=== PATIENT | female | born 1960 | race American Indian/Alaskan Native ===

== ENCOUNTER 2016-09-29 08:30 | Day surgery (SDC) | payer MEDICARE ==
[2016-09-21 10:24] VITALS: BMI 56.3
[2016-09-29 09:06] VITALS: RESP 16; TEMP 98
[2016-09-29] MEDS ORDERED: Propofol 10 mg/ml Inj (20 ML) ONE (10:04)
[2016-09-29] MEDS ORDERED: Lactated Ringer's 1,000 ML IV SCH (10:20)
[2016-09-29 10:42] VITALS: O2SAT 99
[2016-09-29 11:57] VITALS: BP 108/67; PULSE 80
== END 2016-09-29 11:51 | disposition home or self-care (01) ==
LOC: ENDO 08:30
PROVIDERS: ATTEND Specialist
DX: K22.2 Esophageal obstruction (principal); K21.9 Gastro-esophageal reflux disease without esophagitis; K29.50 Unspecified chronic gastritis without bleeding; K44.9 Diaphragmatic hernia without obstruction or gangrene; K31.9 Disease of stomach and duodenum, unspecified; Z01.818 Encounter for other preprocedural examination; E66.01 Morbid (severe) obesity due to excess calories; Z68.43 Body mass index [BMI] 50.0-59.9, adult; J44.9 Chronic obstructive pulmonary disease, unspecified; Z86.73 Personal history of transient ischemic attack (TIA), and cerebral infarction without residual deficits

== ENCOUNTER 2018-06-05 13:50 | Emergency (ER) | payer MEDICARE ==
[2018-06-05 13:51] VITALS: BMI 56.3
[2018-06-05 14:37] VITALS: RESP 20; TEMP 99.8
--- NOTE | 2018-06-05 14:57 | ED PDOC ---
Arrival/HPI - General Historian: Patient - History of Present Illness Narrative History of Present Illness (Text): Patient is a 58 yr old F with PMH who presents with SOB, nonproductive cough, congestion, f/c, and headache since yesterday. patient indicates that she had taken a nebulizer treatment at home this morning to alleviate SOB but did not feel much better. She otherwise denies Dizziness, CP, body aches, abdominal pain, n/v, stool changes and extremity pain/weakness. 06/05/18 14:42 Time/Duration: Prior to Arrival Symptom Course: Unchanged Severity Level: 6 <Karly Arce - Last Filed: 06/05/18 18:32> <Deejay Hernandez - Last Filed: 06/05/18 21:24> - General Chief Complaint: Shortness Of Breath Past Medical History - Provider Review Nursing Documentation Reviewed: Yes - Infectious Disease Hx of Infectious Diseases: None - Tetanus Immunization Tetanus Immunization: Unknown - Reproductive Menopause: Yes - Cardiac Hx Pacemaker: No - Pulmonary Hx Chronic Obstructive Pulmonary Disease (COPD): Yes - Neurological Hx Paralysis: No (WEAKNESS R ARM AND R LEG FROM PAST CVA) - Hematological/Oncological Hx Blood Transfusions: No - Musculoskeletal/Rheumatological Hx Musculoskeletal Disorders: Yes - Psychiatric Hx Emotional Abuse: No Hx Physical Abuse: No Hx Substance Use: No - Surgical History Hx Appendectomy: Yes Hx Hysterectomy: Yes Other/Comment: b/l oopherectomy - Anesthesia Hx Anesthesia Reactions: No Hx Malignant Hyperthermia: No - Suicidal Assessment Feels Threatened In Home Enviroment: No <Karly Arce - Last Filed: 06/05/18 18:32> Family/Social History - Physician Review Nursing Documentation Reviewed: Yes Family/Social History: Unknown Family HX Smoking Status: Current Some Days Smoker Hx Alcohol Use: No Hx Substance Use: No Hx Substance Use Treatment: No <Karly Arce - Last Filed: 06/05/18 18:32> Allergies/Home Meds <Karly Arce - Last Filed: 06/05/18 18:32> <Deejay Hernandez - Last Filed: 06/05/18 21:24> Allergies/Adverse Reactions: Allergies latex Allergy (Verified 04/06/16 17:48) RASH Sulfa (Sulfonamide Antibiotics) Allergy (Verified 04/06/16 17:48) RASH tomato Allergy (Verified 04/06/16 17:48) RASH Home Medications: Home Meds Medication Instructions Recorded Confirmed RX: Triamterene/Hydrochlorothiazid 1 tab PO DAILY 10/31/11 09/29/16 [Maxzide 75 mg-50 mg Tablet] RX: Omeprazole [Prilosec] 40 mg PO DAILY 01/31/14 09/29/16 Propranolol HCl [Inderal LA] 60 mg PO QPM 09/06/16 09/29/16 Acetaminophen/Butalbital/Caf 1 tab PO DAILY PRN 09/21/16 09/21/16 [Fioricet] Albuterol HFA [Ventolin HFA 90 11 puff IH PRN PRN 09/21/16 09/29/16 mcg/actuation (8 g)] Carisoprodol [Soma] 350 mg PO TID 09/21/16 09/29/16 Hydrocodone/Acetaminophen [Vicodin 1 tab PO Q6H PRN 09/21/16 09/29/16 5 mg-300 mg] Naproxen [Naprosyn] 500 mg PO BID 09/21/16 09/29/16 Pericolace 1 tab PO DAILY PRN 09/21/16 09/29/16 RX: Loratadine [Claritin] 10 mg PO DAILY 09/21/16 09/29/16 RX: Multivitamin [Multivitamins] 1 tab PO DAILY 09/21/16 09/29/16 Tiotropium Br/Olodaterol HCl 4 gm IH DAILY PRN 09/21/16 09/29/16 [Stiolto Respimat Inhal [place]] RX: Prednisone 50 mg PO DAILY 09/29/16 09/29/16 Review of Systems - Physician Review All systems were reviewed & negative as marked: Yes - Review of Systems ENT: Sinus Congestion Respiratory: SOB, Cough, Sputum <Karly Arce - Last Filed: 06/05/18 18:32> Physical Exam Vital Signs Temp Pulse Resp BP Pulse Ox 06/05/18 14:32 99.8 F H 88 20 168/101 H 92 L Temperature: Afebrile Blood Pressure: Hypertensive Pulse: Regular Respiratory Rate: Apneic Appearance: Positive for: Well-Appearing, Non-Toxic Pain Distress: Mild Mental Status: Positive for: Alert and Oriented X 3 - Systems Exam Head: Present: Atraumatic, Normocephalic Extroacular Muscles: Present: EOMI Mouth: Present: Moist Mucous Membranes Neck: Present: Normal Range of Motion Respiratory/Chest: Present: Good Air Exchange, Wheezes. No: Respiratory Distress, Accessory Muscle Use Cardiovascular: Present: Regular Rate and Rhythm, Normal S1, S2. No: Murmurs Abdomen: Present: Normal Bowel Sounds. No: Tenderness, Distention, Peritoneal Signs, Guarding <Karly Arce - Last Filed: 06/05/18 18:32> Vital Signs Temp Pulse Resp BP Pulse Ox 06/05/18 15:23 99.8 F H 92 H 20 162/97 H 93 L 06/05/18 14:37 20 93 L 06/05/18 14:32 99.8 F H 88 20 168/101 H 92 L <Deejay Hernandez - Last Filed: 06/05/18 21:24> Medical Decision Making ED Course and Treatment: Impression: 58 yr old female with PMH COPD, Migraines, and morbid obesity presenting wiht cough congestion and SOB Plan: CBC CMP CXR rapid flu solumedrol duonebs reassess and dispo 06/05/18 14:44 <Karly Arce - Last Filed: 06/05/18 18:32> ED Course and Treatment: Progress Notes 06/05/18 16:35 Patient seen and evaluated with improvement in pulmonary exam. She is informed of her positive influenza A diagnosis and is started on Tamiflu in the ED. Shared decision making with patient desiring to go home with encouragement to continue conservative management with follow up with her PCP. Scripts provided and opportunity for questions given and answered. She is stable for discharged. - Lab Interpretations Lab Results: 06/05/18 14:58 Lab Results 06/05/18 15:35: Influenza Typ A,B (EIA) Pos for influenza a H 06/05/18 14:58: WBC 6.4 D, RBC 3.87, Hgb 11.9 L, Hct 37.2, MCV 96.1 D, MCH 30.7, MCHC 32.0, RDW 14.5, Plt Count 215, MPV 9.8, Neut % (Auto) 66.5, Lymph % (Auto) 17.2 L, [place] % (Auto) 14.7 H, Eos % (Auto) 1.1 L, Baso % (Auto) 0.5, Lymph # (Auto) 1.1 L, [place] # (Auto) 0.9 H, Eos # (Auto) 0.1, Baso # (Auto) 0.03, Absolute Neuts (auto) 4.26 I have reviewed the lab results: Yes - RAD Interpretation Radiology Orders: 06/05/18 15:02 CHEST PORTABLE [RAD] Stat - Medication Orders Current Medication Orders: Discontinued Medications Acetaminophen (Tylenol 325mg Tab) 650 mg PO STAT STA Stop: 06/05/18 15:39 Last Admin: 06/05/18 16:12 Dose: 650 mg MAR Pain/Vitals Document 06/05/18 16:12 [facility] (Rec: 06/05/18 16:12 [id number] Pain Reassessment Is This A Pain ReAssessment? No Sleep Is patient sleeping during reassessment? No Presence of Pain Presence of Pain Yes Pain Scale Used Protocol: PSCALES Pain Scale Used Numeric Albuterol Sulfate (Albuterol 0.083% Inhal Sherri (2.5 Mg/3 Ml) Ud) 2.5 mg INH STAT STA Stop: 06/05/18 14:59 Last Admin: 06/05/18 15:26 Dose: 2.5 mg Methylprednisolone (Solu-Medrol) 125 mg IVP STAT STA Stop: 06/05/18 15:03 Last Admin: 06/05/18 15:25 Dose: 125 mg IVP Administration Document 06/05/18 15:25 [facility] (Rec: 06/05/18 15:26 [id number] Charges for Administration # of IVP Administrations 1 Oseltamivir Phosphate (Tamiflu Cap) 75 mg PO ONCE ONE; Protocol Stop: 06/05/18 16:05 Last Admin: 06/05/18 16:13 Dose: 75 mg <Deejay Hernandez - Last Filed: 06/05/18 21:24> Disposition/Present on Arrival - Present on Arrival Any Indicators Present on Arrival: No History of DVT/PE: No History of Uncontrolled Diabetes: No Urinary Catheter: No History of Decub. Ulcer: No History Surgical Site Infection Following: None - Disposition Have Diagnosis and Disposition been Completed?: Yes Patient Plan: Discharge <Karly Arce - Last Filed: 06/05/18 18:32> - Present on Arrival Any Indicators Present on Arrival: No - Disposition Have Diagnosis and Disposition been Completed?: Yes Disposition Time: 16:41 Patient Plan: Discharge <Deejay Hernandez - Last Filed: 06/05/18 21:24> - Disposition Diagnosis: Influenza A Disposition: HOME/ ROUTINE Condition: GOOD Discharge Instructions (ExitCare): Flu, Adult (DC) Print Language: NAMIBIAN Prescriptions: Methylprednisolone [Medrol Dose Pack (21 tabs)] 4 mg PO DAILY #21 mg Oseltamivir Cap [Tamiflu] 75 mg PO BID 5 Days #10 cap Referrals: Sergio Dixon, [Primary Care Provider] - Follow up with primary Forms: [employer] (Sinhala), WORK NOTE
[2018-06-05] MEDS ORDERED: Albuterol 0.083% Inhal Sol (2.5 mg/3 mL) UD INH STA ×2 (14:58→16:46)
--- NOTE | 2018-06-05 15:36 | RAD ---
Date of service: 06/05/2018 HISTORY: Wheezing. SOB. COMPARISON: Comparison chest 08/24/2016 FINDINGS: LUNGS: No active pulmonary disease. PLEURA: No significant pleural effusion identified, no pneumothorax apparent. CARDIOVASCULAR: Mild aortic atherosclerotic calcification present. Normal cardiac size. No pulmonary vascular congestion. OSSEOUS STRUCTURES: No significant abnormalities. VISUALIZED UPPER ABDOMEN: Normal. OTHER FINDINGS: None. IMPRESSION: No active disease.
[2018-06-05 15:38] LABS: BASO # 0.03 K/mm3 (0.0-2.0); BASO % 0.5 % (0.0-3.0); EOS # 0.1 (0.0-0.7); EOS % 1.1 % (1.5-5.0); HEMOGLOBIN 11.9 g/dL (12.0-16.0); LYMPH # 1.1 (1.2-3.4); LYMPH % 17.2 % (22.0-35.0); MEAN CELL VOLUME 96.1 fl (80.0-105.0); MEAN CORPUSCULAR HEMOGLOBIN 30.7 pg (25.0-35.0); MEAN PLATELET VOLUME 9.8 fl (7.0-11.0); MONO # 0.9 (0.1-0.6); MONO % 14.7 % (1.0-6.0); RBC 3.87 10^6/uL (3.5-6.1); RED CELL DISTRIBUTION WIDTH 14.5 % (11.5-14.5); WHITE BLOOD COUNT 6.4 10^3/uL (4.5-11.0)
[2018-06-05 18:03] VITALS: BP 128/72; PULSE 96
[2018-06-05 18:06] VITALS: O2SAT 96
--- NOTE | 2018-06-06 11:17 | CARD ---
APPROVED REPORT Date of service: 06/05/2018 EKG Measurement Heart [id number] <Conclusion> Normal sinus rhythm Normal ECG
== END 2018-06-05 17:00 | disposition home or self-care (01) ==
LOC: ED 13:50
DX: J10.1 Influenza due to other identified influenza virus with other respiratory manifestations (principal); E66.01 Morbid (severe) obesity due to excess calories; G43.909 Migraine, unspecified, not intractable, without status migrainosus; J44.9 Chronic obstructive pulmonary disease, unspecified
CPT/HCPCS: 71045; 85025; 87804; 93005; 96374; 99284; J2930

== ENCOUNTER 2018-06-09 14:20 | Inpatient (IN) | payer MEDICARE ==
[2018-06-09 14:20] VITALS: BMI 56.3
--- NOTE | 2018-06-09 14:31 | ED PDOC ---
Arrival/HPI - General Chief Complaint: Cough, Cold, Congestion Time Seen by Provider: 06/09/18 14:21 Historian: Patient - History of Present Illness Narrative History of Present Illness (Text): 06/09/18 14:31 A 58 year old female, whose past medical history includes bronchitis, presents to the emergency department sent in by Dr. Dixon for shortness of breath for the past 4 to 5 days. Patient reports she was seen in the ER a few days ago and was given one dose of tamiflu. Patient also notes she saw Dr. Dixon on Tuesday who started her on . Patient notes taking one dose of Augmentin this morning. Patient denies any shortness of breath, chest pain, back pain, neck pain, headache, dizziness, or any other complaints. PMD: Dr. Dixon Time/Duration: Other (5 days) Symptom Onset: Gradual Symptom Course: Unchanged Activities at Onset: Light Context: Home Past Medical History - Provider Review Nursing Documentation Reviewed: Yes - Infectious Disease Hx of Infectious Diseases: None - Tetanus Immunization Tetanus Immunization: Unknown - Cardiac Hx Pacemaker: No - Pulmonary Hx Chronic Obstructive Pulmonary Disease (COPD): Yes - Neurological Hx Paralysis: No (WEAKNESS R ARM AND R LEG FROM PAST CVA) - Hematological/Oncological Hx Blood Transfusions: No - Musculoskeletal/Rheumatological Hx Musculoskeletal Disorders: Yes - Psychiatric Hx Emotional Abuse: No Hx Physical Abuse: No Hx Substance Use: No - Surgical History Hx Appendectomy: Yes Hx Hysterectomy: Yes Other/Comment: b/l oopherectomy - Anesthesia Hx Anesthesia Reactions: No Hx Malignant Hyperthermia: No - Suicidal Assessment Feels Threatened In Home Enviroment: No Family/Social History - Physician Review Nursing Documentation Reviewed: Yes Family/Social History: No Known Family HX Smoking Status: Current Some Days Smoker Hx Alcohol Use: No Hx Substance Use: No Hx Substance Use Treatment: No Allergies/Home Meds Allergies/Adverse Reactions: Allergies latex Allergy (Verified 06/09/18 14:29) RASH Sulfa (Sulfonamide Antibiotics) Allergy (Verified 06/09/18 14:29) RASH tomato Allergy (Verified 06/09/18 14:29) RASH Home Medications: Home Meds Medication Instructions Recorded Confirmed Triamterene/Hydrochlorothiazid 1 tab PO DAILY 10/31/11 09/29/16 [Maxzide 75 mg-50 mg Tablet] Omeprazole [Prilosec] 40 mg PO DAILY 01/31/14 09/29/16 Propranolol HCl [Inderal LA] 60 mg PO QPM 09/06/16 09/29/16 Acetaminophen/Butalbital/Caf 1 tab PO DAILY PRN 09/21/16 09/21/16 [Fioricet] Albuterol HFA [Ventolin HFA 90 11 puff IH PRN PRN 09/21/16 09/29/16 mcg/actuation (8 g)] Carisoprodol [Soma] 350 mg PO TID 09/21/16 09/29/16 Hydrocodone/Acetaminophen [Vicodin 1 tab PO Q6H PRN 09/21/16 09/29/16 5 mg-300 mg] Loratadine [Claritin] 10 mg PO DAILY 09/21/16 09/29/16 Multivitamin [Multivitamins] 1 tab PO DAILY 09/21/16 09/29/16 Naproxen [Naprosyn] 500 mg PO BID 09/21/16 09/29/16 Pericolace 1 tab PO DAILY PRN 09/21/16 09/29/16 Tiotropium Br/Olodaterol HCl 4 gm IH DAILY PRN 09/21/16 09/29/16 [Stiolto Respimat Inhal [place]] Prednisone 50 mg PO DAILY 09/29/16 09/29/16 Review of Systems - Physician Review All systems were reviewed & negative as marked: Yes - Review of Systems Constitutional: Fevers, Night Sweats, Other (chills) Respiratory: Cough. absent: SOB Cardiovascular: absent: Chest Pain Musculoskeletal: absent: Back Pain, Neck Pain Neurological: absent: Headache, Dizziness Physical Exam Vital Signs Reviewed: Yes Temperature: Afebrile Blood Pressure: Normal Pulse: Tachycardic Respiratory Rate: Normal Appearance: Positive for: Well-Appearing Mental Status: Positive for: Alert and Oriented X 3 - Systems Exam Head: Present: Atraumatic, Normocephalic Pupils: Present: PERRL Extroacular Muscles: Present: EOMI Conjunctiva: Present: Normal Respiratory/Chest: Present: Wheezes (wheezing bilaterally). No: Other (no excess muscle usage) Cardiovascular: Present: Regular Rate and Rhythm, Normal S1, S2. No: Murmurs Abdomen: No: Tenderness, Distention, Peritoneal Signs Upper Extremity: Present: Normal Inspection. No: Cyanosis, Edema Lower Extremity: Present: Normal Inspection. No: Edema Neurological: Present: GCS=15, CN II-XII Intact, Speech Normal Skin: Present: Warm, Dry, Normal Color. No: Rashes Psychiatric: Present: Alert, Oriented x 3, Normal Insight, Normal Concentration Medical Decision Making ED Course and Treatment: 06/09/18 14:32 Impression: 58 year old female presenting to the emergency room complaining of shortness of breath. Was seen previously in this ED, dx w/ flu+ and COPD exacerbation. Given steroids and tamiflu. On exam, wheezes, moderate, but clinically well, speaking in full sentences in nad. Plan: -- EKG -- Labs -- CBC -- Chest X-ray -- Duoneb -- Solumedrol -- Reassess and disposition Prior Visits: Notes and results from previous visits were reviewed. Patient was last seen on 06/05/18 for shortness of breath. Patient was discharged with a prescription for medrol 4 mg PO daily and Tamiflu 75 mg PO BID 5 days with advisement to follow up with Dr. Dixon. Progress Notes: 06/09/18 18:26 labs largely unremarkable CXR read w/ out PNA. accepted by teetee, pt in NAD, good o2 sat on NC, speaking in full sentences to tele given recurrent wheezes despite x3 duonebs w/ steroids and now on NC and failed outpt rx. - RAD Interpretation Narrative RAD Interpretations (Text): 06/09/18 16:49 Procedure: Chest X-ray Dictator: Jules Hernández MD Impression: Poor inspiration with low lung volumes, crowded bronchovascular markings and mild bibasilar atelectasis. Jack Spooler Tender: Radiologist - EKG Interpretation EKG Interpretation (Text): 06/09/18 14:54 EKG: Ordered, reviewed, and independently interpreted the EKG. Rate : 91 BPM Rhythm : NSR Interpretation : No stemi. Interpreted by ED Physician: Yes - Scribe Statement The provider has reviewed the documentation as recorded by the Chayo Angel All medical record entries made by the Scribe were at my direction and personally dictated by me. I have reviewed the chart and agree that the record accurately reflects my personal performance of the history, physical exam, medical decision making, and the department course for this patient. I have also personally directed, reviewed, and agree with the discharge instructions and disposition. Disposition/Present on Arrival - Present on Arrival Any Indicators Present on Arrival: No History of DVT/PE: No History of Uncontrolled Diabetes: No Urinary Catheter: No History of Decub. Ulcer: No History Surgical Site Infection Following: None - Disposition Have Diagnosis and Disposition been Completed?: Yes Diagnosis: Shortness of breath, Bronchitis Disposition Time: 18:26 Patient Problems: Current Active Problems Problem Status Onset Shortness of breath Acute Bronchitis Acute Condition: GOOD
[2018-06-09] MEDS: Albuterol-Ipratrop 3 mg / 0.5 (3 ml) UD IH SCH ×3 (14:43→17:57)
[2018-06-09 15:21] LABS: BASO # 0.02 K/mm3 (0.0-2.0); BASO % 0.2 % (0.0-3.0); EOS # 0.1 (0.0-0.7); EOS % 0.4 % (1.5-5.0); HEMOGLOBIN 13.2 g/dL (12.0-16.0); LYMPH # 1.7 (1.2-3.4); MEAN CELL VOLUME 96.5 fl (80.0-105.0); MEAN CORPUSCULAR HEMOGLOBIN 30.8 pg (25.0-35.0); MEAN CORPUSCULAR HGB CONC 31.9 g/dl (31.0-37.0); MEAN PLATELET VOLUME 10.4 fl (7.0-11.0); MONO # 0.8 (0.1-0.6); MONO % 6.5 % (1.0-6.0); RBC 4.29 10^6/uL (3.5-6.1); WHITE BLOOD COUNT 11.5 10^3/uL (4.5-11.0)
[2018-06-09 15:36] LABS: ALBUMIN 4.4 g/dL (3.0-4.8); BLOOD UREA NITROGEN 19 mg/dL (7-21); CALCIUM 9.5 mg/dL (8.4-10.5); GFR NON-AFRICAN AMERICAN > 60
[2018-06-09 15:48] LABS: TROPONIN I < 0.01 ng/mL
[2018-06-09 15:51] LABS: ALT/SGPT 37 U/L (7-56); AST/SGOT 60 U/L (14-36)
--- NOTE | 2018-06-09 16:26 | RAD ---
Date of service: 06/09/2018 HISTORY: sob COMPARISON: Comparison made with chest radiograph dated 06/05/2018. TECHNIQUE: Chest PA and lateral FINDINGS: LUNGS: Poor inspiration with low lung volumes, crowded bronchovascular markings and mild bibasilar atelectasis. PLEURA: No significant pleural effusion identified. No pneumothorax apparent. CARDIOVASCULAR: No aortic atherosclerotic calcification present. Normal cardiac size. No pulmonary vascular congestion. OSSEOUS STRUCTURES: No significant abnormalities. VISUALIZED UPPER ABDOMEN: Normal. OTHER FINDINGS: None. IMPRESSION: Poor inspiration with low lung volumes, crowded bronchovascular markings and mild bibasilar atelectasis.
[2018-06-09] MEDS ORDERED: [UNRECOGNIZED DRUG - OTHER] IH PRN (17:11)
[2018-06-09] MEDS ORDERED: TIOTROPIUM BR IH PRN (17:11)
[2018-06-09] MEDS ORDERED: PERICOLACE PO PRN (17:11)
[2018-06-09] MEDS ORDERED: OLODATEROL HCL IH PRN (17:11)
[2018-06-09] MEDS: MethylPREDNISolone 40 mg Vial IVP SCH (17:59)
--- NOTE | 2018-06-09 20:12 | CARD ---
APPROVED REPORT Date of service: 06/09/2018 EKG Measurement Heart [id number] <Conclusion> Normal sinus rhythm Possible Left atrial enlargement Borderline ECG
[2018-06-09] MEDS: Propranolol 60 mg ER Cap PO SCH (20:59)
[2018-06-10] MEDS: Albuterol-Ipratrop 3 mg / 0.5 (3 ml) UD IH SCH ×2 (00:04→15:57)
[2018-06-10] MEDS: MethylPREDNISolone 40 mg Vial IVP SCH ×4 (00:05→18:27)
--- NOTE | 2018-06-10 01:08 | HP ---
DATE OF EXAM: 06/09/2018 HISTORY OF PRESENT ILLNESS: I saw in the office about 3 or 4 days ago. She was very congested, sounds like a bronchitis. No wheezes. I put her on the Medrol Dosepak 4 mg, Phenergan DM, and Augmentin 500 twice a day, trying to improve her lungs. She comes into the office again worse, more short of breath. No coughing or wheezing. Pulse ox going to get above 86% in the office, sent to the emergency room. She is also given Tamiflu one dose for whatever reason and she is in the emergency room now, I just saw her. She is very short of breath. I gave her three nebulizer treatments, Solu-Medrol 125, and now she is starting to get a little bit improvement. She has COPD history, appendectomy, hysterectomy, bilateral oophorectomy surgeries. ALLERGIES: SHE IS ALLERGIC TO LATEX, SULFA, TOMATO. MEDICATIONS: She is on Maxzide, Prilosec, Inderal, for headaches, Ventolin, hydrocodone for headaches, Claritin, multivitamin, Naprosyn, Beth-Colace, Stiolto and prednisone. REVIEW OF SYSTEMS She has fevers, night sweats, chills. She is coughing, congestion and mucus. No chest pain. No neck pain. No back pain. No headache or dizziness at this time. She is extremely short of breath with wheezing, coughing up phlegm and green phlegm. FAMILY HISTORY: No known family history. SOCIAL HISTORY: She still smokes cigarettes,believe or not. No alcohol. No drugs. PHYSICAL EXAMINATION: VITAL SIGNS: She had a 98.2 temperature, 96 pulse, 137/77 blood pressure, 16 respiratory rate with oxygen 94%. HEENT: Head is atraumatic, normocephalic Extraocular muscles are intact. Throat is moist. NECK: Supple. HEART: Regular rate. Normal S1, S2. LUNGS: Wheezing bilaterally. Congestion bilaterally, short of breath. ABDOMEN: Soft, nontender. Positive bowel sounds. Obese. EXTREMITIES: No edema of the extremities. NEUROLOGICAL: GCS is 15. Cranial nerves II through XII grossly intact. Speech is normal. Alert and oriented x3. SKIN: Warm and dry. No apparent ulcers or rashes appreciated. LYMPH: Thyroid midline. No palpable appreciable lymphadenopathy understands why she is here. LABORATORY DATA: She had a bunch of tests done. Sodium 139, potassium 4.4, BUN 90, creatinine 0.8, GFR is greater than 60, sugar is 111, calcium 9.5, magnesium 1.9, total bili is 0.7. AST is 60, ALT is 37, alk phos 76. Troponin I is less than 0.01. BNP is 66, total protein is 8.9, albumin is 4.4. White count 7.5, on steroids, hemoglobin 30.2, hematocrit 41.4 ,platelets 224. DIAGNOSTIC DATA: She had a chest x-ray that showed poor inspiration, low volumes, crowded bronchovascular markings, mild bibasilar atelectasis. She will be Solu-Medrol, so pulmonary consult. She will be on promethazine, DuoNebs [id number], oxygen, and hopefully she will improve. She has had acute exacerbation of COPD. Sergio Dixon DO MTDD
[2018-06-10] MEDS: Pantoprazole 40mg/100mL NS 40 MG/100 ML BAG IVPB SCH (05:58)
[2018-06-10 06:23] LABS: HEMOGLOBIN 12.1 g/dL (12.0-16.0); MEAN CELL VOLUME 94.3 fl (80.0-105.0); MEAN CORPUSCULAR HEMOGLOBIN 30.3 pg (25.0-35.0); MEAN CORPUSCULAR HGB CONC 32.1 g/dl (31.0-37.0); MEAN PLATELET VOLUME 10.4 fl (7.0-11.0); RED CELL DISTRIBUTION WIDTH 13.6 % (11.5-14.5); WHITE BLOOD COUNT 12.9 10^3/uL (4.5-11.0)
[2018-06-10 06:54] LABS: ALBUMIN 3.9 g/dL (3.0-4.8); ALT/SGPT 35 U/L (7-56); AST/SGOT 39 U/L (14-36); BLOOD UREA NITROGEN 20 mg/dL (7-21); CALCIUM 9.6 mg/dL (8.4-10.5); GFR NON-AFRICAN AMERICAN > 60
[2018-06-10] MEDS: hydroCHLOROthiazide-Triamterene 25 mg-37.5 mg Cap UD PO SCH (09:48)
--- NOTE | 2018-06-10 12:52 | CON ---
DATE OF CONSULTATION: 06/10/2018 HISTORY: The patient is a 58-year-old woman who presents with dyspnea and bronchitis. The patient's past medical history is notable for multiple years of smoking. The patient's past medical history also includes bronchospasm in which the patient is on albuterol as well as prednisone. She denies chest pain. Denies edema in the lower extremities. Her cardiac workup, which included an echocardiogram and a stress test, performed in 12/2017, were unremarkable with a good ejection fraction. However, pulmonary hypertension was not ruled out. SOCIAL HISTORY: The patient just stopped smoking recently. REVIEW OF SYSTEMS: All unremarkable. PHYSICAL EXAMINATION: VITAL SIGNS: Blood pressure 132/80, heart rate is in the 80s, normal sinus rhythm. NECK: Negative JVD. LUNGS: Minimal rhonchi. HEART: S1, S2. EXTREMITIES: Without edema. DIAGNOSTIC DATA: EKG reveals normal sinus rhythm with left atrial enlargement. LABORATORY DATA: The glucose is 153. The troponin is negative. The ProBNP is 66. The hemoglobin is 12. IMPRESSION: 1. Dyspnea secondary to bronchospasm and exacerbation of chronic obstructive pulmonary disease. 2. Bronchitis. 3. Morbid obesity. 4. Borderline diabetes mellitus. PLAN: Given these findings, the patient's dyspnea is likely from her pulmonary cause. There is no evidence for a cardiac cause of dyspnea. We will repeat her echocardiogram to rule out pulmonary hypertension. Angelo High MD
[2018-06-10] MEDS ORDERED: CARISOPRODOL 350 MG PO SCH (14:00)
--- NOTE | 2018-06-10 15:47 | CON ---
DATE: 06/10/2018 PULMONARY CONSULTATION REASON FOR CONSULTATION: The patient was seen and examined at bedside. We were asked by Dr. Dixon, dietary service aide, to evaluate and treat this 58-year-old female that was admitted by Emergency Room with shortness of breath. HISTORY OF PRESENT ILLNESS: The patient was seen in Dr. Dixon's office several days ago. She complained of upper respiratory symptoms and congestion. She was suspected to have influenza and was started on Tamiflu; however, the repeat test in the Emergency Room did not show presence of influenza. She was complaining of shortness of breath with wheezing, coughing, and expectoration of sputum. She was started on antibiotics as well as Medrol-Dosepak. The coughing and wheezing actually worsened and that is why she came to the Emergency Room where she received higher dose steroids, nebulizer treatment and was admitted. ALLERGIES: SHE IS ALLERGIC TO LATEX, SULFA, TOMATO. FAMILY HISTORY: No history of inherent diseases. SOCIAL HISTORY: She is a former heavy smoker, according to her, quit recently. MEDICATIONS: At home include Maxzide, Prilosec, Inderal, Ventolin, Claritin, Naprosyn, Stiolto, and prednisone. REVIEW OF SYSTEMS: A review of systems was conducted by reviewing all sources. RESPIRATORY: See history of present illness. CARDIOVASCULAR: No chest pain, no palpitations. MUSCULOSKELETAL: No back pain. Moving all extremities well. GI: No history of nausea, vomiting, or diarrhea. The rest of the systems were reviewed and found to be negative. PHYSICAL EXAMINATION: GENERAL: She is awake, alert, not in acute distress. VITAL SIGNS: Temperature is 98.2, pulse 96, respirations 20, blood pressure 130/70, and pulse oximetry is 94% on nasal cannula. HEENT: Head is normocephalic, atraumatic. Throat; not red. NECK: Supple with no jugular vein distentions. CARDIOVASCULAR: S1 and S2. No S3, regular. PULMONARY: Bilateral wheezing and rhonchi present. GI: Soft, nontender. No organomegaly. EXTREMITIES: No pedal edema. No cyanosis. NEUROLOGIC: No focal deficits. SKIN: Warm, dry. No acute skin rashes. LABORATORY DATA: She is negative for influenza A. Her sodium is 139, potassium 4.4, BUN is elevated, creatinine is normal. Electrolytes are normal as well. BNP is pending. WBC is normal at 7.5. I reviewed chest x-ray, which shows mild bilateral increase in bronchovascular markings, but otherwise normal x-ray. ASSESSMENT: 1. Exacerbation of chronic obstructive pulmonary disease. 2. Nicotine dependence. 3. Acute bronchitis. 4. Morbid obesity. 5. Rule out obstructive sleep apnea. PLAN: The patient was started on nebulizer treatments. We will continue Inderal. Phenergan cough syrup was ordered. She is on moderate dose of intravenous steroids. She is starting on DuoNeb inhalation, which is helping her. We will continue that. Follow closely. Dennis Rubalcava MD
--- NOTE | 2018-06-10 16:41 | PN ---
DATE: 06/10/2018 SUBJECTIVE: I saw her in her room this morning. She was breathing with oxygen. Still felt short of breath, she took a couple of steps and got short of breath. She has bibasilar atelectasis and also COPD exacerbation. She failed outpatient treatment with the Medrol Dosepak, Augmentin, Phenergan DM, and breathing treatment. She is currently on Brovana, Dyazide, Inderal, Beth-Colace, Phenergan DM, Protonix. Solu-Medrol, I moved down to 30 mg every 8 hours. She is being seen by Pulmonary. PHYSICAL EXAMINATION: VITAL SIGNS: She has 99.2 temperature, 83 pulse, 132/80 blood pressure, 18 respiratory rate, 99% O2 sat on 2 liters. HEENT: Head: Atraumatic and normocephalic. HEART: Regular and rate. LUNGS: Decreased breath sounds, but clear. No wheezes. No rhonchi. No rales. She is feeling better breathing, but cannot take few steps without being short of breath. ABDOMEN: Soft and obese. EXTREMITIES: No edema. She tells me she just quit smoking yesterday. LABORATORY DATA: She has 12.9 white count, 12.1 hemoglobin, 37.7 hematocrit, 233 platelets. 140 sodium, potassium 4.1, BUN 20, creatinine 0.8, GFR is greater than 60, sugar is 163, calcium 9.6, total bili is 0.5. AST is 39, ALT is 35, and alk phos 76. Troponin I was less than 0.01, total protein is 8. Negative for the flu. There are consults for Pulmonary and I added Cardiology on the case. I decreased the Solu-Medrol to 30. ASSESSMENT: She is having acute exacerbation of chronic obstructive pulmonary disease and atelectasis. I think there is a little bit of improvement today; hopefully, it continues. We will decrease the Solu-Medrol to 30 every 8 hours, check her labs tomorrow, and see if Cardiology can help us with. Sergio Dixon DO
[2018-06-10] MEDS: Propranolol 60 mg ER Cap PO SCH (18:25)
[2018-06-10] MEDS: Arformoterol 15 mcg/2 ml Inh Sol IH SCH (19:29)
[2018-06-10] MEDS: Promethazine DM 6.25 mg-15 mg/5 ml Syrup PO PRN (21:57)
[2018-06-11] MEDS: Pantoprazole 40mg/100mL NS 40 MG/100 ML BAG IVPB SCH (05:15)
[2018-06-11] MEDS ORDERED: MethylPREDNISolone 40 mg Vial IVP SCH (06:00)
[2018-06-11] MEDS ORDERED: Apap-Butalbital-Caffeine 325-50-40mg Tab PO STA (06:41)
[2018-06-11 07:09] LABS: HEMOGLOBIN 12.4 g/dL (12.0-16.0); MEAN CELL VOLUME 95.3 fl (80.0-105.0); MEAN CORPUSCULAR HEMOGLOBIN 30.4 pg (25.0-35.0); MEAN CORPUSCULAR HGB CONC 31.9 g/dl (31.0-37.0); MEAN PLATELET VOLUME 10.7 fl (7.0-11.0); RBC 4.08 10^6/uL (3.5-6.1); RED CELL DISTRIBUTION WIDTH 13.6 % (11.5-14.5); WHITE BLOOD COUNT 15.3 10^3/uL (4.5-11.0)
[2018-06-11 07:42] LABS: ALT/SGPT 20 U/L (7-56); AST/SGOT 35 U/L (14-36); BLOOD UREA NITROGEN 30 mg/dL (7-21); CALCIUM 9.5 mg/dL (8.4-10.5); GFR NON-AFRICAN AMERICAN > 60
--- NOTE | 2018-06-11 09:29 | PN ---
DATE: 06/11/2018 SUBJECTIVE: The patient still is short of breath with minimal exertion. OBJECTIVE: VITAL SIGNS: Blood pressure 127/78, heart rates in the 60s. NECK: Negative JVD. LUNGS: Without rales. HEART: Reveal S1, S2. EXTREMITIES: Without edema. LABORATORY DATA: Hemoglobin is 12.4. Chemistries; BUN and creatinine are unremarkable. Troponin is negative. IMPRESSION: 1. Exacerbation of chronic obstructive pulmonary disease. 2. Morbid obesity. 3. Dyspnea. 4. Borderline diabetes mellitus. Given these findings, the patient's symptoms are all pulmonary related. We will review the echocardiogram that was done yesterday. However, do not feel that will contribute to her case at this time. Angelo High MD
[2018-06-11] MEDS: Arformoterol 15 mcg/2 ml Inh Sol IH SCH ×2 (09:37→19:43)
[2018-06-11] MEDS: hydroCHLOROthiazide-Triamterene 25 mg-37.5 mg Cap UD PO SCH (10:17)
--- NOTE | 2018-06-11 12:20 | PN ---
DATE: 06/11/2018 SUBJECTIVE: She was short of breath this morning. She was tight wheezing. She is a nebulizer treatments although she is on Brovana, also she is on Solu-Medrol, I am going to increase it allowed it to every 6 hours on 30 mg. She was at 88% sating yesterday on room air when she forgot to put the nasal cannula on. This morning, I had her tested she is on 92% with room air and 96% with oxygen 2 L. She is just uncomfortable, she cannot walk to the bathroom without being short of breath, she has wheezing this morning. PHYSICAL EXAMINATION: VITAL SIGNS: Temperature 97.7, 69 pulse, 127/70 blood pressure, 20 respiratory rate, 96% O2 sat on nasal cannula and was 92% without it after being off for 20 minutes. HEENT: Head is atraumatic and normocephalic. HEART: Regular rate. LUNGS: Decreased breath sounds, but was wheezing today, she was tight. I went over this with the respiratory therapist who also felt she was tight and gave her a nebulizer treatment to loosen her up. She was also bumped up to Solu-Medrol gave her stat nebulizer treatment. ABDOMEN: Soft, morbidly obese. EXTREMITIES: No edema. Discussed this with the credit collection specialist who felt that her heart is not the issue here, although she can only walk a few feet again short of breath. MEDICATIONS: She is currently on Brovana, soma, DuoNeb, Dyazide, Inderal, Beth-Colace, Phenergan DM, Protonix, Solu-Medrol, and Stiolto. LABORATORY DATA: She has a 15.3 white count, could be from the steroids; 12.4 hemoglobin, 38.9 hematocrit with a 264 platelets. Sodium 139, potassium 4.4, BUN 35, creatinine 0.9, GFR is greater than 60, sugar is 116, calcium 9.5, total bilirubin is 0.5. AST is 35, ALT is 20, alk phos 71, troponin I less than 0.01, total protein is 8.1. Negative for the flu. PLAN: I am hoping tomorrow, I could start decrease in the Solu-Medrol again, nebulizers around the clock, continue aggressive treatment and Pulmonary care. The patient with acute exacerbation of COPD, I suggest quit smoking Sergio Dixon DO MTDD
--- NOTE | 2018-06-11 12:59 | PN ---
DATE: 06/11/2018 PULMONARY PROGRESS NOTE SUBJECTIVE: The patient was seen and evaluated at bedside. She states she feels better, but she is still short of breath and feels chest tightness. PHYSICAL EXAMINATION: VITAL SIGNS: She is afebrile. The pulse is 84, respirations 20, pulse oximetry is 91% on room air repeatedly. Blood pressure 120/78. HEAD, EYES, EARS, NOSE, AND THROAT: Within normal limits. NECK: Supple. There is no jugular vein distention. CARDIOVASCULAR: S1, S2, no S3, regular. PULMONARY: Diffuse end-expiratory wheezing and rhonchi. GASTROINTESTINAL: Soft, nontender, and obese. Bowel sounds present. EXTREMITIES: No pedal edema. No cyanosis. SKIN: Clear with no skin rashes. NEUROLOGIC: No focal deficits. ASSESSMENT: 1. Exacerbation of chronic obstructive pulmonary disease. 2. Morbid obesity. 3. Suspected obstructive sleep apnea. 4. Hypoxia. PLAN: The patient's oxygen saturation is quite low on room air. This is a combination of exacerbated chronic obstructive pulmonary disease and possibly obstructive sleep apnea, coupled with morbid obesity. We will advise evaluation for sleep apnea as an outpatient. In the interim, we will continue with administration of Brovana every 12 hours. She is on intravenous steroids and good bronchodilator therapy which will continue. Dennis Rubalcava MD
[2018-06-11] MEDS: Albuterol-Ipratrop 3 mg / 0.5 (3 ml) UD IH SCH ×2 (14:35→19:43)
[2018-06-11] MEDS: MethylPREDNISolone 40 mg Vial IVP SCH ×3 (16:10→21:05)
[2018-06-11] MEDS: Apap-Butalbital-Caffeine 325-50-40mg Tab PO PRN (16:11)
[2018-06-11] MEDS: Propranolol 60 mg ER Cap PO SCH ×2 (18:36→21:03)
[2018-06-11] MEDS: Promethazine DM 6.25 mg-15 mg/5 ml Syrup PO PRN (22:09)
[2018-06-12] MEDS: Albuterol-Ipratrop 3 mg / 0.5 (3 ml) UD IH SCH ×5 (01:23→20:42)
[2018-06-12] MEDS: Pantoprazole 40mg/100mL NS 40 MG/100 ML BAG IVPB SCH (05:19)
[2018-06-12] MEDS: Apap-Butalbital-Caffeine 325-50-40mg Tab PO PRN ×2 (05:22→14:59)
[2018-06-12 06:41] LABS: HEMOGLOBIN 12.6 g/dL (12.0-16.0); MEAN CELL VOLUME 94.4 fl (80.0-105.0); MEAN CORPUSCULAR HEMOGLOBIN 30.5 pg (25.0-35.0); MEAN CORPUSCULAR HGB CONC 32.3 g/dl (31.0-37.0); MEAN PLATELET VOLUME 10.5 fl (7.0-11.0); RBC 4.13 10^6/uL (3.5-6.1); RED CELL DISTRIBUTION WIDTH 13.3 % (11.5-14.5)
[2018-06-12 06:54] LABS: ALT/SGPT 19 U/L (7-56); AST/SGOT 35 U/L (14-36); BLOOD UREA NITROGEN 33 mg/dL (7-21); CALCIUM 9.7 mg/dL (8.4-10.5); GFR NON-AFRICAN AMERICAN > 60
[2018-06-12] MEDS: Arformoterol 15 mcg/2 ml Inh Sol IH SCH ×2 (07:29→20:42)
[2018-06-12] MEDS: Budesonide 0.5 mg/2 ml Inhal Susp UD IH SCH ×2 (07:35→20:42)
[2018-06-12] MEDS: MethylPREDNISolone 40 mg Vial IVP SCH ×3 (08:14→22:25)
[2018-06-12] MEDS: CARISOPRODOL 350 MG PO SCH ×3 (09:48→18:09)
[2018-06-12] MEDS: levoFLOXacin 500 MG TAB PO SCH (09:56)
[2018-06-12] MEDS: hydroCHLOROthiazide-Triamterene 25 mg-37.5 mg Cap UD PO SCH (09:56)
--- NOTE | 2018-06-12 10:58 | PN ---
DATE: 06/12/2018 SUBJECTIVE: The patient appears comfortable this morning. She is not short of breath at rest. PHYSICAL EXAMINATION: VITAL SIGNS: Temperature is 98.4, pulse 62, respirations 18/20, blood pressure 139/80. Oxygen saturation on nasal cannula is 98%. HEENT: Normocephalic, atraumatic. No JVD. CARDIOVASCULAR: Positive S1, S2. No S3 gallop. LUNGS: Decreased breath sounds at the bases. Minimal rhonchi. Minimal wheezing. EXTREMITIES: Mild edema. No cyanosis, no clubbing. Calves are nontender to palpation. GASTROINTESTINAL: Abdomen is soft, nontender and nondistended. Bowel sounds are positive. SKIN: No acute rash. NEUROLOGIC: Exam limited at the present time. IMPRESSION: 1. Acute bronchitis. 2. Chronic obstructive pulmonary disease. 3. Obesity. 4. Rule out obstructive sleep apnea. PLAN: The patient appears comfortable this morning. She is not short of breath at rest. She does state to feeling much better overall. On physical exam, there appears to be less bronchospasm noted. In addition, the oxygen saturation is 98% on nasal cannula this morning. I will continue the current nebulizer treatments and decrease the intravenous steroids this morning. I will also add inhaled steroids in this long-term COPD patient. Lastly, given the above history, I will also add oral antibiotic therapy. There is no history of temperatures. The patient does state to feeling much better this morning, and is clinically improved. Additional pulmonary intervention will be based on the clinical status of the patient. I will discuss the above with Dr. Dixon. Kevin Murguia MD MTDD
--- NOTE | 2018-06-12 11:22 | PN ---
DATE: 06/12/2018 SUBJECTIVE: The patient remains mildly short of breath. PHYSICAL EXAMINATION: VITAL SIGNS: Blood pressure 139/80, heart rate is in the 60s. NECK: Negative JVD. LUNGS: Bilateral rhonchi. HEART: Reveals S1, S2. EXTREMITIES: Without edema. LABORATORY DATA: White count is 17,000, BUN and creatinine are unremarkable. Glucose 139. IMPRESSION: 1. Exacerbation of chronic obstructive pulmonary disease. 2. Morbid obesity. 3. Diabetes mellitus. 4. Dyspnea. PLAN: Given these findings, I have discussed with the patient about her need to stop smoking and live healthier, the patient is still not convinced. Angelo High MD
--- NOTE | 2018-06-12 12:45 | PN ---
DATE: 06/12/2018 SUBJECTIVE: I saw her sitting out of bed to chair. She is coughing, congested. She has had a rough night. She is on Brovana, Soma, Colace, DuoNeb, Dyazide, Fioricet for headaches, Inderal, Levaquin, Phenergan, Protonix, Pulmicort, Senokot, Solu-Medrol 30 IV every 8 hours, and Stiolto. She is still coughing, still has congestion. She is still tight when walks to the bathroom. PHYSICAL EXAMINATION: VITAL SIGNS: Temperature 98.4, pulse 62, blood pressure 139/80, respiratory rate 20, 98% O2 saturation on 3 liters. HEAD: Atraumatic and normocephalic. HEART: Regular rate. LUNGS: Bilateral congestion. Changes with cough. Decreased breath sounds; she sounds tight. ABDOMEN: Soft. Morbidly obese. EXTREMITIES: No edema. LABORATORY DATA: She has a 17 white count from the steroids, 12.6 hemoglobin, 39 hematocrit with 345 platelets. Sodium 138, potassium 4.4, BUN 32, creatinine 0.9. GFR is greater than 60. Sugar is 139, calcium 9.7. total bili is 0.4. AST is 35, ALT is 90, alkaline phosphatase 73, and total protein is 8.2. ASSESSMENT AND PLAN: Negative for the flu. The patient is being seen by Cardiology and by Pulmonology. She is on the IV Solu-Medrol. Discussed this with Pulmonary this morning. She might need another day or two of Solu-Medrol. When he tells me I could discharge her, I will. She has acute exacerbation of chronic obstructive pulmonary disease, obesity, possible obstructive sleep apnea, hypoxia. She is short of breath. Sergio Dixon DO
--- NOTE | 2018-06-12 13:08 | CP.PCM.APN ---
Subjective - Date & Time of Evaluation Date of Evaluation: 06/12/18 Time of Evaluation: 10:30 - Subjective Subjective: pt seen and examined at bedside states she feels better since admission , still with cough Review of Systems - Respiratory Respiratory: Cough, Dyspnea on Exertion Objective - Vital Signs/Intake and Output Vital Signs (last 24 hours): Temp Pulse Resp BP Pulse Ox 98.4 F 72 20 139/80 98 06/12/18 06:00 06/12/18 10:00 06/12/18 06:00 06/12/18 06:00 06/12/18 06:00 Intake and Output: 06/12/18 06/12/18 06:59 18:59 Intake Total 2260 Balance 2260 - Medications Medications: Current Medications Acetaminophen/Butalbital/Caffeine (Fioricet) 1 tab PO Q8H PRN PRN Reason: Migraine headache Last Admin: 06/12/18 05:22 Dose: 1 tab Albuterol/Ipratropium (Duoneb 3 Mg/0.5 Mg (3 Ml) Ud) 3 ml IH [id number] [facility] Last Admin: 06/12/18 07:29 Dose: 3 ml Arformoterol Tartrate (Brovana) 15 mcg IH [id number] [facility] Last Admin: 06/12/18 07:29 Dose: 15 mcg Budesonide (Pulmicort Respules) 0.5 mg IH [id number] [facility] Last Admin: 06/12/18 07:35 Dose: 0.5 mg Docusate Sodium (Colace) 100 mg PO DAILY PRN PRN Reason: Constipation Pantoprazole Sodium (Protonix 40mg Ivpb) 40 mg in 100 mls @ 200 mls/hr IVPB 0600 [facility] Last Admin: 06/12/18 05:19 Dose: 200 mls/hr Levofloxacin (Levaquin) 500 mg PO DAILY [facility]; Protocol Last Admin: 06/12/18 09:56 Dose: 500 mg Methylprednisolone (Solu-Medrol) 30 mg IVP Q8H [facility] Last Admin: 06/12/18 08:14 Dose: 30 mg Non-Formulary Medication (Carisoprodol [Soma]) 350 mg PO TID [facility] Last Admin: 06/12/18 09:48 Dose: Not Given Non-Formulary Medication (Tiotropium Br/Olodaterol Hcl [Stiolto Respimat Inhal [place]]) 4 gm IH DAILY PRN PRN Reason: Shortness of Breath Promethazine HCl/Dextromethorphan (Phenergan Dm Syrup) 5 ml PO Q6H PRN PRN Reason: Cough Last Admin: 06/11/18 22:09 Dose: 5 ml Propranolol HCl (Inderal La) 60 mg PO HS [facility] Sennosides (Senokot Tab) 8.6 mg PO DAILY PRN PRN Reason: Constipation Triamterene/HCTZ (Dyazide 25 Mg-37.5 Mg) 2 cap PO DAILY [facility] Last Admin: 06/12/18 09:56 Dose: 2 cap - Labs Labs: 06/12/18 06:20 06/12/18 06:20 - Constitutional Appears: No Acute Distress - Eye Exam Eye Exam: Normal appearance - Respiratory Exam Respiratory Exam: Decreased Breath Sounds, Wheezes - Cardiovascular Exam Cardiovascular Exam: +S1, +S2 - GI/Abdominal Exam GI & Abdominal Exam: Soft, Normal Bowel Sounds - Neurological Exam Neurological Exam: Alert, Awake - Psychiatric Exam Psychiatric exam: Normal Mood - Skin Skin Exam: Dry, Intact Assessment and Plan - Assessment and Plan (Free Text) Plan: 58 yr old female with pmh sig for copd, smoker, morbid obesity admitted after failing outpatient treatment for cough and SOB (?bronchitis) pt now admitted for futher mgmt with cardiology and pulmonary consultations #acute SOB / COPD exacerbation Pul consultation iv steriods 30 Q8 - weaning Brovana, duoneb, pulmicort regimen #Smoker smoking cessation encouraged Will continue to follow, discuss DC plan and disposition with CM will order p.t opal Gerard, DNP, SOCIOLOGY TEACHER BPCI/TIC - BPCIA/TIC Educated pt/family on BPCIA/CIR/Med to Bed Programs: N/A Flyers given, including [facility] Beneficiary letter: N/A Pt/family verbalized understanding & agreed to program: N/A
--- NOTE | 2018-06-12 13:53 | CARD ---
APPROVED REPORT Date of service: 06/10/2018 EXAM: Two-dimensional and M-mode echocardiogram with Doppler and color Doppler. INDICATION DYSPNEA 2D DIMENSIONS IVSd1.3 (0.7-1.1cm)LVDd3.7 (3.9-5.9cm) PWd1.3 (0.7-1.1cm)LVDs2.5 (2.5-4.0cm) FS (%) 32.0 %LVEF (%)61.1 (>50%) M-Mode DIMENSIONS Left Atrium (MM)3.80 (2.5-4.0cm)Aortic Root3.10 (2.2-3.7cm) Aortic Cusp Exc.1.70 (1.5-2.0cm) Aortic Valve AoV Peak Asynugmn042.0cm/sAoV VTI47.7cmAO Peak GR.29mmHg AO Mean GR.12mmHg Mitral Valve MV E Fbddwbbm204.0cm/sMV A Sbaohfls72.0cm/sE/A ratio1.6 TDI Lateral E' Peak V10.60cm/sMedial E' Peak V10.00cm/sE/Lateral E'9.8 E/Medial E'10.4 Tricuspid Valve TR Peak Cizorzeh244qp/sRAP [id number] Peak Gr.19mmHg [id number] LEFT VENTRICLE There is mild concentric left ventricular hypertrophy. The left ventricular function is normal. The left ventricular ejection fraction is within the normal range. AORTIC VALVE The aortic valve is thickened but opens well. MITRAL VALVE The mitral valve is thickened but opens well. TRICUSPID VALVE The tricuspid valve leaflets are thickened , but open well. PERICARDIAL EFFUSION There is no pericardial effusion. <Conclusion> Linited Study due to pts obesity Good LV function
[2018-06-12] MEDS: Propranolol 60 mg ER Cap PO SCH (21:53)
[2018-06-12] MEDS: Promethazine DM 6.25 mg-15 mg/5 ml Syrup PO PRN (22:02)
[2018-06-13] MEDS: Albuterol-Ipratrop 3 mg / 0.5 (3 ml) UD IH SCH ×4 (02:57→19:24)
[2018-06-13] MEDS: Pantoprazole 40 mg EC Tab PO SCH (05:33)
[2018-06-13] MEDS: Apap-Butalbital-Caffeine 325-50-40mg Tab PO PRN ×3 (05:37→21:24)
[2018-06-13 07:10] LABS: HEMOGLOBIN 13.3 g/dL (12.0-16.0); MEAN CELL VOLUME 93.8 fl (80.0-105.0); MEAN CORPUSCULAR HEMOGLOBIN 30.8 pg (25.0-35.0); MEAN CORPUSCULAR HGB CONC 32.8 g/dl (31.0-37.0); MEAN PLATELET VOLUME 10.3 fl (7.0-11.0); RBC 4.32 10^6/uL (3.5-6.1)
[2018-06-13 07:37] LABS: ALB/GLOB RATIO 0.9 (1.1-1.8); ALBUMIN 4.1 g/dL (3.0-4.8); ALT/SGPT 30 U/L (7-56); AST/SGOT 36 U/L (14-36); BLOOD UREA NITROGEN 33 mg/dL (7-21); CALCIUM 10.6 mg/dL (8.4-10.5); GFR NON-AFRICAN AMERICAN > 60
[2018-06-13] MEDS: Budesonide 0.5 mg/2 ml Inhal Susp UD IH SCH ×2 (08:23→19:24)
[2018-06-13] MEDS: Arformoterol 15 mcg/2 ml Inh Sol IH SCH ×2 (08:23→19:24)
--- NOTE | 2018-06-13 09:17 | PN ---
DATE: 06/13/2018 SUBJECTIVE: The patient appears quite comfortable this morning. She is not short of breath at rest. OBJECTIVE: VITAL SIGNS: Temperature is 98.4, pulse 80, respirations 19, blood pressure 141/84. Oxygen saturation on nasal cannula is 97%. HEENT: Normocephalic, atraumatic. NECK: No JVD. CARDIOVASCULAR: Positive S1, S2. No S3 gallop. LUNGS: Improved breath sounds at the bases. Less rhonchi. Less wheezing. EXTREMITIES: Mild edema. No cyanosis, no clubbing. Calves are nontender to palpation. GASTROINTESTINAL: Abdomen is soft, nontender, nondistended. Bowel sounds are positive. SKIN: No acute rash. NEUROLOGIC: Limited at the present time. IMPRESSION: 1. Acute bronchitis. 2. Chronic obstructive pulmonary disease. 3. Obesity. 4. Rule out obstructive sleep apnea. PLAN: The patient appears quite comfortable this morning. She is not short of breath at rest. She does state to feeling much better overall. On physical exam, her bronchospasm continues to resolve. In addition, the alveolar-arterial gradient also continues to resolve. I will continue the current nebulizer treatments and decrease the intravenous steroids this morning. The patient also remains on antibiotic therapy. There are no temperatures noted. Clinical status of the patient appears significantly improved - compared to her initial presentation. I did discuss the patient's sleep habits with her at length this morning. She was tested for sleep apnea approximately 5 years ago - negative. We can always retest her as an outpatient. I will discuss the above with Dr. Dixon. Kevin Murguia MD MTDD
[2018-06-13] MEDS: levoFLOXacin 500 MG TAB PO SCH (09:50)
[2018-06-13] MEDS: MethylPREDNISolone 40 mg Vial IVP SCH ×2 (09:51→21:20)
[2018-06-13] MEDS: hydroCHLOROthiazide-Triamterene 25 mg-37.5 mg Cap UD PO SCH (09:51)
[2018-06-13] MEDS: CARISOPRODOL 350 MG PO SCH ×3 (13:07→17:29)
--- NOTE | 2018-06-13 13:41 | PN ---
DATE: 06/13/2018 SUBJECTIVE: I saw her sitting up in bed. She actually had a fairly good night last night. She is actually breathing better today also. She was able to walk to the bathroom without short of breath, but on her way back she got short of breath, which is still better. MEDICATIONS: She is on Brovana, Soma, Colace, DuoNeb, Dyazide, Fioricet for migraines, Inderal, Levaquin, Phenergan, Protonix, Pulmicort, Senokot, Solu-Medrol and Stiolto. PHYSICAL EXAMINATION: VITAL SIGNS: She has 97.6 temp, 60 pulse, 133/81 blood pressure, 93 respiratory rate, 97% O2 sat on 3 liters. HEENT: Head is atraumatic and normocephalic. Throat is moist. NECK: Supple. HEART: Regular rate. LUNGS: Decreased breath sounds, but clear. No wheezes, rhonchi or rales today. The night yesterday was bad, today no bad sounds but just decreased breath sounds. ABDOMEN: Soft, morbidly obese. EXTREMITIES: No edema. She just quit smoking about a month ago, 05/09/2018. LABORATORY DATA: She has an 18,000 white count, probably from the steroids, 13.3 hemoglobin, 40.5 hematocrit and 377 platelets. Sodium 139, potassium 4.7, BUN 33, creatinine 0.9, GFR is greater than 60, sugar is 143, calcium is 10.6, it went up high. AST is 36, ALT is 30, alk phos 77, total protein is 8.6. ASSESSMENT AND PLAN: She is being seen by Pulmonary, Cardiology. I discussed this with Pulmonary this morning. The plan is for discharge. Exacerbation of the chronic obstructive pulmonary disease, morbid obesity, diabetes and dyspnea. Heart turned out to be okay. Hope she continues to improve as we decrease the Solu-Medrol. We will continue with aggressive treatment and care. Sergio Dixon DO
--- NOTE | 2018-06-13 14:28 | CP.PCM.APN ---
Subjective - Date & Time of Evaluation Date of Evaluation: 06/13/18 Time of Evaluation: 13:30 - Subjective Subjective: pt. seen and examined, sitting up in chair, at bedside. States still has wheezes on and off. Still with cough, though feels better overall since admit. States gets short of breath, after ambulation with PT today. Review of Systems - Constitutional Constitutional: As Per HPI - EENT Eyes: absent: As Per HPI, Blind Spots, Blurred Vision, Change in Vision, Decreased Night Vision, Diplopia, Discharge, Dry Eye, Exophthalmos, Floaters, Irritation, Itchy Eyes, Loss of Peripheral Vision, Pain, Photophobia, Requires Corrective Lenses, Sees Flashes, Spots in Vision, Tunnel Vision, Other Visual Disturbances, Loss of Vision, Other Ears: absent: As Per HPI, Decreased Hearing, Ear Discharge, Ear Pain, Tinnitus, Abnormal Hearing, Disequilibrium, Dizziness, Other Nose/Mouth/Throat: absent: As Per HPI, Epistaxis, Nasal Congestion, Nasal Discharge, Nasal Obstruction, Nasal Trauma, Nose Pain, Post Nasal Drip, Sinus Pain, Sinus Pressure, Bleeding Gums, Change in Voice, Dental Pain, Dry Mouth, Dysphagia, Halitosis, Hoarsness, Lip Swelling, Mouth Lesions, Mouth Pain, Odynophagia, Sore Throat, Throat Swelling, Tongue Swelling, Facial Pain, Neck Pain, Neck Mass, Other - Breasts Breasts: absent: As Per HPI, Change in Shape, Mass, Pain, Nipple Discharge, Nipple Inversion, Skin Changes, Swelling, Other - Cardiovascular Cardiovascular: absent: As Per HPI, Acrocyanosis, Chest Pain, Chest Pain at Rest, Chest Pain with Activity, Claudication, Diaphoresis, Dyspnea, Dyspnea on Exertion, Edema, Irregular Heart Rhythm, Pain Radiating to Arm/Neck/Jaw, Leg Edema, Leg Ulcers, Lightheadedness, Orthopnea, Palpitations, Paroxysmal Nocturnal Dyspnea, Pedal Edema, Radiating Pain, Rapid Heart Rate, Slow Heart Rate, Syncope, Other - Respiratory Respiratory: Wheezing - Gastrointestinal Gastrointestinal: absent: As Per HPI, Abdominal Pain, Belching, Bloating, Change in Bowel Habits, Change in Stool Character, Coffee Ground Emesis, Constipation, Cramping, Diarrhea, Dyspepsia, Dysphagia, Early Satiety, Excessive Flatus, Fecal Incontinence, Heartburn, Hematemesis, Hematochezia, Loose Stools, Melena, Nausea, Odynophagia, Temesmus, Vomiting, Other - Genitourinary Genitourinary: absent: As Per HPI, Change in Urinary Stream, Difficulty Urinating, Dysuria, Flank Pain, Hematuria, Pyuria, Nocturia, Urinary Incontinence, Urinary Frequency, Urinary Hesitance, Urinary Urgency, Voiding Freq/Small Amts, Freq UTI, Hx Renal/Bladder Calculi, Hx /Renal Surgery, Bladder Distension, Other - Reproductive: Female Reproductive:Female: absent: As Per HPI, Amenorrhea, Amenorrhea/ Control, Currently Menstual, Cycle <21 Days, Cycle >35 Days, Cycle Variable, Menses 1-7 Days, Menses >/= 8 Days, Menses Variable, Cycle > 4 Weeks Between, No Menses for 6 Months, Heavy Menses, Light Menses, Normal Menses, Spotting Between Cycles, S/P Hysterectomy, Menopausal, Post Menopausal, Premenarche, Abnormal Vaginal Bleeding, Dysmenorrhea, Dyspareunia, Genital Lesions, Genital Pruritis, Pelvic Pain, Prolapse Symptoms, Sexual Dysfunction, Vaginal Discharge, Vaginal Dryness, Vaginal Odor, Vaginal Pruritis, Other - Menstruation Menstruation: absent: As Per HPI, Amenorrhea, Amenorrhea/ Control, Currently Menstual, Cycle <21 Days, Cycle >35 Days, Cycle Variable, Menses 1-7 Days, Menses >/= 8 Days, Menses Variable, Cycle > 4 Weeks Between, No Menses for 6 Months, Heavy Menses, Light Menses, Normal Menses, Spotting Between Cycles, S/P Hysterectomy, Menopausal, Post Menopausal, Premenarche, Abnormal Vaginal Bleeding, Dysmenorrhea, Other - Musculoskeletal Musculoskeletal: absent: As Per HPI, Abnormal Gait, Arthralgias, Atrophy, Back Pain, Deformity, Joint Swelling, Limited Range of Motion, Loss of Height, Muscle Cramps, Muscle Weakness, Myalgias, Neck Pain, Numbness, Radiating Pain into Limb, Stiffness, Tingling, Other - Integumentary Integumentary: absent: As Per HPI, Acne, Alopecia, Bleeding Lesions, Change in Hair, Change in Nails, Change in Pigmentation, Changing Lesions, Dry Skin, Erythema, Furuncle, Hirsutism, Lesions, New Lesions, Non-Healing Lesions, Photosensitivity, Pruritus, Rash, Skin Pain, Skin Ulcer, Sores, Striae, Swelling, Unusual Bruising, Wounds, Jaundice, Other - Neurological Neurological: absent: As Per HPI, Abnormal Gait, Abnormal Hearing, Abnormal Movements, Abnormal Speech, Behavioral Changes, Burning Sensations, Confusion, Convulsions, Disequilibrium, Dizziness, Numbness, Focal Weakness, Frequent Falls, Headaches, Lack of Coordination, Loss of Vision, Memory Loss, Parest hesias, Radicular Pain, Restless Legs, Sensory Deficit, Syncope, Tingling, Tremor, Vertigo, Weakness, Other Visual Disturbances, Other - Psychiatric Psychiatric: absent: As Per HPI, Abnormal Sleep Pattern, Anhedonia, Anxiety, Auditory Hallucinations, Behavioral Changes, Change in Appetite, Change in Libido, Confusion, Depression, Difficulty Concentrating, Hallucinations, Homicidal Ideation, Hopelessness, Irritability, Memory Loss, Mood Swings, Panic Attacks, Paranoia, Suicidal Ideation, Visual Hallucinations, Tactile Hallucinations, Other - Endocrine Endocrine: absent: As Per HPI, Change in Body Appearance, Change in Libido, Cold Intolorance, Deepening of Voice, Excessive Sweating, Fatigue, Flushing, Heat Intolorance, Increase in Ring/Shoe/Hat Size, Palpitations, Polydipsia, Polyphagia, Polyuria, Other Objective - Vital Signs/Intake and Output Vital Signs (last 24 hours): Temp Pulse Resp BP Pulse Ox 97.6 F 61 19 133/81 97 06/13/18 06:00 06/13/18 06:00 06/13/18 06:00 06/13/18 06:00 06/13/18 06:00 Intake and Output: 06/13/18 06/13/18 06:59 18:59 Intake Total 540 Output Total 1 Balance 539 - Medications Medications: Current Medications Acetaminophen/Butalbital/Caffeine (Fioricet) 1 tab PO Q8H PRN PRN Reason: Migraine headache Last Admin: 06/13/18 13:14 Dose: 1 tab Albuterol/Ipratropium (Duoneb 3 Mg/0.5 Mg (3 Ml) Ud) 3 ml IH [id number] SHAILESH Last Admin: 06/13/18 14:21 Dose: 3 ml Arformoterol Tartrate (Brovana) 15 mcg IH [id number] SHAILESH Last Admin: 06/13/18 08:23 Dose: 15 mcg Budesonide (Pulmicort Respules) 0.5 mg IH [id number] [facility] Last Admin: 06/13/18 08:23 Dose: 0.5 mg Docusate Sodium (Colace) 100 mg PO DAILY PRN PRN Reason: Constipation Levofloxacin (Levaquin) 500 mg PO DAILY [facility]; Protocol Last Admin: 06/13/18 09:50 Dose: 500 mg Methylprednisolone (Solu-Medrol) 30 mg IVP Q12 [facility] Last Admin: 06/13/18 09:51 Dose: 30 mg Non-Formulary Medication (Carisoprodol [Soma]) 350 mg PO TID [facility] Last Admin: 06/13/18 14:12 Dose: Not Given Non-Formulary Medication (Tiotropium Br/Olodaterol Hcl [Stiolto Respimat Inhal [place]]) 4 gm IH DAILY PRN PRN Reason: Shortness of Breath Pantoprazole Sodium (Protonix Ec Tab) 40 mg PO 0600 [facility] Last Admin: 06/13/18 05:33 Dose: 40 mg Promethazine HCl/Dextromethorphan (Phenergan Dm Syrup) 5 ml PO Q6H PRN PRN Reason: Cough Last Admin: 06/12/18 22:02 Dose: 5 ml Propranolol HCl (Inderal La) 60 mg PO HS [facility] Last Admin: 06/12/18 21:53 Dose: 60 mg Sennosides (Senokot Tab) 8.6 mg PO DAILY PRN PRN Reason: Constipation Triamterene/HCTZ (Dyazide 25 Mg-37.5 Mg) 2 cap PO DAILY [facility] Last Admin: 06/13/18 09:51 Dose: 2 cap - Labs Labs: 06/13/18 06:20 06/13/18 06:20 - Constitutional Appears: Well, Non-toxic - Head Exam Head Exam: NORMOCEPHALIC - Eye Exam Eye Exam: absent: Conjunctival injection, EOMI, Normal appearance, Nystagmus, Periorbital swelling, Periorbital tenderness, PERRL, Scleral icterus - ENT Exam ENT Exam: absent: Mucous Membranes Dry, Mucous Membranes Moist, Normal Exam, Normal External Ear Exam, Normal Oropharynx, TM's Normal Bilaterally - Neck Exam Neck Exam: Full ROM - Respiratory Exam Respiratory Exam: Wheezes - Cardiovascular Exam Cardiovascular Exam: REGULAR RHYTHM, +S1, +S2 - GI/Abdominal Exam GI & Abdominal Exam: Soft, Normal Bowel Sounds - Rectal Exam Rectal Exam: Deferred - Exam Exam: absent: Circumcision, NORMAL INSPECTION, Scrotal Swelling, Testicular Tenderness, Uretheral Discharge, Testicular Vertical Lie, Bladder Distension Speculum exam: absent: Cervical Discharge, Erythema, Foreign Body, Laceration, NORMAL SPECULUM EXAM, Tissue, Vaginal Bleeding, Vaginal Discharge Bimanual exam: absent: Adenexal Mass, Adnexal, Cervical Motion Tendernes, NORMAL BIMANUAL EXAM, Uterine Enlargement, Uterine Tenderness - Extremities Exam Extremities Exam: Full ROM - Back Exam Back Exam: Full ROM - Neurological Exam Neurological Exam: Alert, Awake, Oriented x3 - Skin Skin Exam: Dry, Intact, Normal Color, Warm Assessment and Plan - Assessment and Plan (Free Text) Assessment: Assessment: 58 yr old female with pmh sig for copd, smoker, morbid obesity admitted after failing outpatient treatment for cough and SOB, COPD Exac pt now admitted for futher mgmt with cardiology and pulmonary consultations Plan: 1. COPD exacerbation -Pulm consulted iv steriods 30 Q8 - weaned to q12. - Continue Brovana, duoneb, pulmicort regimen as per Pulm, Pt. determined to need Home Oxygen upon Discharge, monitor O2 sats. 2.Smoker -smoking cessation encouraged Will continue to follow, discuss DC plan and disposition with NIKO mary.t recommended HWS. Pulm to decrease IV steroids over next 2 days.
[2018-06-13] MEDS: Promethazine DM 6.25 mg-15 mg/5 ml Syrup PO PRN (21:21)
[2018-06-13] MEDS: Propranolol 60 mg ER Cap PO SCH (21:21)
[2018-06-14] MEDS: Albuterol-Ipratrop 3 mg / 0.5 (3 ml) UD IH SCH ×4 (01:12→19:25)
[2018-06-14] MEDS: Apap-Butalbital-Caffeine 325-50-40mg Tab PO PRN ×2 (05:54→21:56)
[2018-06-14] MEDS: Pantoprazole 40 mg EC Tab PO SCH (05:55)
[2018-06-14 07:05] LABS: HEMOGLOBIN 13.4 g/dL (12.0-16.0); MEAN CORPUSCULAR HEMOGLOBIN 30.9 pg (25.0-35.0); MEAN CORPUSCULAR HGB CONC 32.9 g/dl (31.0-37.0); MEAN PLATELET VOLUME 10.4 fl (7.0-11.0); RBC 4.33 10^6/uL (3.5-6.1); RED CELL DISTRIBUTION WIDTH 12.9 % (11.5-14.5); WHITE BLOOD COUNT 13.8 10^3/uL (4.5-11.0)
[2018-06-14] MEDS: Arformoterol 15 mcg/2 ml Inh Sol IH SCH ×2 (07:32→19:25)
[2018-06-14] MEDS: Budesonide 0.5 mg/2 ml Inhal Susp UD IH SCH ×2 (07:32→19:25)
[2018-06-14 09:24] LABS: ALBUMIN 4.1 g/dL (3.0-4.8); ALT/SGPT 42 U/L (7-56); AST/SGOT 42 U/L (14-36); BLOOD UREA NITROGEN 33 mg/dL (7-21); CALCIUM 10.2 mg/dL (8.4-10.5); GFR NON-AFRICAN AMERICAN > 60
--- NOTE | 2018-06-14 11:25 | PN ---
DATE: 06/14/2018 SUBJECTIVE: The patient appears quite comfortable this morning. She is not short of breath at rest. PHYSICAL EXAMINATION: VITAL SIGNS: Temperature 97.7, pulse 80, respirations 18, blood pressure 152/99. Oxygen saturation on nasal cannula is 99%. HEENT: Normocephalic, atraumatic. NECK: No JVD. CARDIOVASCULAR: Positive S1, S2. No S3 gallop. LUNGS: Minimal/less rhonchi. No wheezing this morning. EXTREMITIES: Mild edema. No cyanosis. No clubbing. Calves are nontender to palpation. GI: Abdomen is soft, nontender and nondistended. Bowel sounds are positive. SKIN: No acute rash. NEUROLOGIC: Exam limited at the present time. IMPRESSION: 1. Acute bronchitis. 2. Chronic obstructive pulmonary disease. 3. Obesity. 4. Rule out obstructive sleep apnea. PLAN: The patient appears very comfortable this morning. She is not short of breath at rest. She does state to feeling much better overall. However, she does state to some mild persistent dyspnea on exertion. On physical exam, her bronchospasm continues to resolve. In addition, the alveolar-arterial gradient also continues to resolve. I will continue with the current nebulizer treatments and low-dose intravenous steroids (decreased yesterday) for now. Hopefully, we will be able to change to oral medication in the next 24 hours. Clinical status of the patient is significantly improved - compared to the initial presentation. We will check room air oxygen saturations with ambulation this morning. The patient is for discharge in the near future. I will discuss the above with Dr. Dixon. Kevin Murguia MD MTDD
[2018-06-14] MEDS: CARISOPRODOL 350 MG PO SCH ×3 (11:27→18:02)
[2018-06-14] MEDS: MethylPREDNISolone 40 mg Vial IVP SCH ×2 (11:34→21:55)
[2018-06-14] MEDS: levoFLOXacin 500 MG TAB PO SCH (11:35)
[2018-06-14] MEDS: hydroCHLOROthiazide-Triamterene 25 mg-37.5 mg Cap UD PO SCH (11:35)
[2018-06-14] MEDS: Promethazine DM 6.25 mg-15 mg/5 ml Syrup PO PRN ×2 (11:35→21:55)
--- NOTE | 2018-06-14 12:30 | PN ---
DATE: 06/14/2018 SUBJECTIVE: I saw her resting comfortably sitting up in bed. She is in good spirits. The oxygen is now off. I believe Dr. Murguia, the control room agent trying to get her oxygen saturation on without the oxygen. MEDICATIONS: She is on Brovana, Soma, Colace, DuoNeb, Dyazide, Fioricet for migraines, Inderal, Levaquin, Phenergan DM, Protonix, Pulmicort, Senokot, Solu-Medrol down to 30 every 12 hours, and Stiolto. PHYSICAL EXAMINATION: GENERAL: She is breathing better, improving. VITAL SIGNS: Temperature 97.7, 80 pulse, , 126/90 blood pressure, 18 respiratory rate, 99% O2 saturation on nasal cannula. HEENT: Head is atraumatic and normocephalic. HEART: Regular rate. LUNGS: Decreased breath sounds, but clear, much clear than the other day. ABDOMEN: Soft. Morbidly obese. EXTREMITIES: Trace edema if any. LABORATORY DATA: She has a 13.8 white count coming down from 18 nicely, hemoglobin 13.4, hematocrit 40.7 with platelets 276. Sodium 139, potassium 4.7, BUN 33, creatinine 0.9, GFR is greater than 60; sugar is 143; calcium is 10.6 little bit high, it was 9.5; total bilirubin is 0.3; AST is 36; ALT is 38; alkaline phosphatase 77; total protein is 8.6. We will check her labs tomorrow as per Dr. Murguia. He told me, they are going to discharge her tomorrow, so tomorrow looks like the day to go home. IV Solu-Medrol for COPD. She is going to quit smoking I hope. atelectasis, COPD exacerbation. Sergio Dixon DO MTDD
[2018-06-14 14:51] VITALS: RESP 20
[2018-06-14] MEDS: Propranolol 60 mg ER Cap PO SCH (22:06)
[2018-06-15] MEDS: Albuterol-Ipratrop 3 mg / 0.5 (3 ml) UD IH SCH ×3 (01:05→13:16)
[2018-06-15] MEDS: Pantoprazole 40 mg EC Tab PO SCH (05:26)
[2018-06-15] MEDS: Apap-Butalbital-Caffeine 325-50-40mg Tab PO PRN (05:52)
[2018-06-15 06:32] LABS: MEAN CORPUSCULAR HEMOGLOBIN 30.5 pg (25.0-35.0); MEAN CORPUSCULAR HGB CONC 32.8 g/dl (31.0-37.0); MEAN PLATELET VOLUME 10.3 fl (7.0-11.0); RBC 4.26 10^6/uL (3.5-6.1); RED CELL DISTRIBUTION WIDTH 12.9 % (11.5-14.5); WHITE BLOOD COUNT 14.3 10^3/uL (4.5-11.0)
[2018-06-15 06:44] VITALS: TEMP 97.8; O2SAT 99
[2018-06-15 06:59] LABS: ALB/GLOB RATIO 0.9 (1.1-1.8); ALBUMIN 3.7 g/dL (3.0-4.8); ALT/SGPT 72 U/L (7-56); AST/SGOT 51 U/L (14-36); BLOOD UREA NITROGEN 37 mg/dL (7-21); CALCIUM 9.8 mg/dL (8.4-10.5); GFR NON-AFRICAN AMERICAN 57
[2018-06-15] MEDS: Arformoterol 15 mcg/2 ml Inh Sol IH SCH (07:16)
[2018-06-15] MEDS: Budesonide 0.5 mg/2 ml Inhal Susp UD IH SCH (07:16)
--- NOTE | 2018-06-15 08:12 | PN ---
DATE: 06/15/2018 SUBJECTIVE: The patient appears very comfortable this morning. She is not short of breath at rest. PHYSICAL EXAMINATION: VITAL SIGNS: Temperature 97.8, pulse 83, respirations 18/20, blood pressure 117/74. Oxygen saturation on room air is 99%. HEENT: Normocephalic, atraumatic. NECK: No JVD. CARDIOVASCULAR: Positive S1, S2. No S3 gallop. LUNGS: A few tiny expiratory wheezes are appreciated. LUNGS: Otherwise, clear. EXTREMITIES: Mild edema. No cyanosis. No clubbing. Calves are nontender to palpation. GI: Abdomen is soft, nontender and nondistended. Bowel sounds are positive. SKIN: No acute rash. NEUROLOGIC: Exam limited at the present time. IMPRESSION: 1. Acute bronchitis. 2. Chronic obstructive pulmonary disease. 3. Obesity. 4. Rule out obstructive sleep apnea. PLAN: The patient appears very comfortable this morning. She is not short of breath at rest. She does state to feeling much, much better overall. She is asking to be discharged today. On physical exam, her bronchospasm continues to resolve. In addition, the oxygen saturation on room air is now 99%. I will continue with the current nebulizer treatments and change to oral steroids this morning. I will continue with the antibiotic coverage for now. The patient is for discharge in the near future. She is significantly improved overall. She does have an appointment with me in the office in a few weeks. I will discuss the above with Dr. Dixon. Kevin Murguia MD MTDD
[2018-06-15] MEDS: levoFLOXacin 500 MG TAB PO SCH (09:51)
[2018-06-15] MEDS: hydroCHLOROthiazide-Triamterene 25 mg-37.5 mg Cap UD PO SCH (09:51)
[2018-06-15 12:51] VITALS: BP 129/83; PULSE 812
--- NOTE | 2018-06-15 15:47 | DS ---
HISTORY OF PRESENT ILLNESS: She is doing much better. She is breathing much better. She is going to home on Brovana, Soma, Colace, DuoNeb, Dyazide, Fioricet, Inderal, Phenergan, prednisone 40 mg for 3 days, 30 mg for 3 days, 20 mg for 3 days and 10 mg for 3 days and stop, Protonix, Pulmicort, and Stiolto inhaler. She is doing much better, breathing much better. PHYSICAL EXAMINATION: VITAL SIGNS: She is stating at 94% on room air, 97.8 temperature, 83 pulse, 117/74 blood pressure, 20 respiratory rate and 99% on room air. HEENT: Head is atraumatic and normocephalic. HEART: Regular rate. LUNGS: Clear to auscultation. ABDOMEN: Soft and obese. EXTREMITIES: No edema. LABORATORY DATA: She has a 40.3 white count from the steroids, 13 hemoglobin, 39.6 hematocrit with 388 platelets. Sodium 138, potassium 4.5, BUN 37, creatinine 1, GFR is 57, sugar is 184, calcium is 9.8, and total bilirubin is 0.2, AST is 51, ALT is 72, and alkaline phosphatase 75, total protein is 7.7. Negative for the flu. She was seen by Pulmonology. She is being discharged today. Prescriptions are written, she will be seeing me in the office, see a neurologist and a steam cleaner. She was here for acute respiratory Sergio Dixon DO MTDD
== END 2018-06-15 14:15 | disposition home health service (06) | DRG 191 ==
LOC: ED 14:20 → ERH 18:24 → 2RNO 06-10 01:15
PROVIDERS: ADMIT Family Medicine; ATTEND Family Medicine
DX: J44.1 Chronic obstructive pulmonary disease with (acute) exacerbation (principal); J98.11 Atelectasis; I69.351 Hemiplegia and hemiparesis following cerebral infarction affecting right dominant side; Z68.42 Body mass index [BMI] 45.0-49.9, adult; J20.9 Acute bronchitis, unspecified; J44.0 Chronic obstructive pulmonary disease with (acute) lower respiratory infection; I27.20 Pulmonary hypertension, unspecified; E11.9 Type 2 diabetes mellitus without complications; E66.01 Morbid (severe) obesity due to excess calories; F17.210 Nicotine dependence, cigarettes, uncomplicated; R09.02 Hypoxemia; Z90.49 Acquired absence of other specified parts of digestive tract; Z90.710 Acquired absence of both cervix and uterus; Z90.722 Acquired absence of ovaries, bilateral; G47.33 Obstructive sleep apnea (adult) (pediatric)